=== PATIENT | female | born 1985 | race Two or more races ===

== ENCOUNTER 2023-12-13 09:21 | Emergency (ER) | payer BC, MEDICAID ==
[~2023-12-13] VITALS: Ht 162.6 cm; Wt 68.0 kg
[2023-12-13 09:51] LABS: Basophils # (auto) 0 10 ^3/uL (0-0.2); Basophils % (auto) 0.5 % (0.0-2.0); Eosinophils # (auto) 0.1 10 ^3/uL (0-0.8); Eosinophils % (auto) 1.4 % (0.0-7.0); Hemoglobin 14.5 g/dL (12.2-16.2); Lymphocytes # (auto) 2.2 10 ^3/uL (0.4-5.4); Lymphocytes % (auto) 25.1 % (10.0-50.0); Mean Corpuscular Hemoglobin 29.7 pg (28.0-32.0); Mean Corpuscular Hgb Conc. 33.8 g/dL (32.0-36.0); Mean Corpuscular Volume 87.8 fL (80.0-100.0); Monocytes # (auto) 0.5 10 ^3/uL (0-1.3); Monocytes % (auto) 5.4 % (0.0-12.0); Neutrophils # (auto) 5.9 10 ^3/uL (1.6-8.6); Neutrophils % (auto) 67.6 % (37.0-80.0); Nucleated Red Blood Cells % 0.1 %; White Blood Cell 8.7 10^3/uL (4.4-10.8)
[2023-12-13] MEDS: ALBUTEROL SULF 2.5 MG/0.5ML(0.5%) NEB SOLN NEB ONE (10:32)
[2023-12-13 10:34] LABS: Alanine Aminotransferase 20 U/L (7-40); Alkaline Phosphatase 79 U/L (46-116); Anion Gap 8 (5-15); Aspartate Aminotransferase 14 U/L (13-40); BUN/Creatinine Ratio 9.5 (10.0-20.0); Blood Urea Nitrogen 7 mg/dL (9-23); Calcium 9.8 mg/dL (8.7-10.4); Carbon Dioxide 24 mmol/L (20-30); Chloride 108 mmol/L (98-107); Glucose 112 mg/dL (74-106); Magnesium 1.9 mg/dL (1.6-2.6); Potassium 3.3 mmol/L (3.5-5.1); Sodium 140 mmol/L (136-145)
[2023-12-13 10:35] VITALS: RESP 15; O2SAT 99
[2023-12-13 10:35] LABS: Albumin 4.8 g/dL (3.2-4.8); Bilirubin, Total 0.5 mg/dL (0.2-1.0); Total Protein 7.6 g/dL (5.7-8.2)
[2023-12-13] MEDS: IOHEXOL 350 MG/ML 100ML IJ ONE (10:35)
[2023-12-13] MEDS: MORPHINE SULFATE 4 MG/ML SYR/VIAL IV ONE (10:56)
[2023-12-13] MEDS: KETOROLAC TROMETH 30 MG/ML 1ML VIAL IV ONE (10:56)
[2023-12-13] MEDS: ONDANSETRON HCL 4 MG/2 ML VIAL IV ONE (10:56)
[2023-12-13 11:05] LABS: INR 0.99 (0.9-1.15); Partial Thromboplastin Time 28.5 SEC (24.5-34.5); Prothrombin Time 10.5 sec (9.3-11.8)
[2023-12-13 12:47] LABS: Urine Bacteria None Seen /hpf (None Seen)
[2023-12-13 13:07] LABS: Urine Blood 1+ /uL (Negative); Urine Clarity Clear (Clear); Urine Color Light-Yellow (Yellow); Urine Protein, UAD Negative (Negative); Urine Specific Gravity 1.023 (1.001-1.035); Urine Urobilinogen Normal (Negative); Urine WBC 1 /hpf (0 - 5)
[2023-12-13] MEDS ORDERED: MAA30LQ GT (13:59)
[2023-12-13] MEDS ORDERED: LIDO2SOL MT (13:59)
[2023-12-13] MEDS ORDERED: FAMO20TA10 PO (13:59)
[2023-12-13 14:29] VITALS: BP 109/72; PULSE 96; RESP 16; TEMP 98; O2SAT 97
== END 2023-12-13 14:41 | disposition home or self-care (01) ==
LOC: ER 09:21
DX: K21.9 Gastro-esophageal reflux disease without esophagitis (principal)
CPT/HCPCS: 36415; 71045; 71275; 80053; 81001; 83735; 83880; 84484; 85025; 85610; 85730; 93005; 94640; 96374; 96375; 99285; J1885; J2270; J2405; J7030; Q9967